=== PATIENT | female | born 1970 | race Caucasian/White ===

== ENCOUNTER 2022-04-05 12:48 | Observation (INO) ==
[2022-04-05 14:02] LABS: Basophils # 0.1 K/mcL (0.0-0.2); Basophils % 0.9 %; Eosinophils # 0.3 K/mcL (0.0-0.6); Eosinophils % 4.7 %; Hematocrit 39.9 % (35.3-44.9); Hemoglobin 12.8 g/dL (11.5-15.4); Immature Granulocytes % 0.2 % (0-4); Lymphocytes # 1.5 K/mcL (0.6-4.6); Lymphocytes % 27.1 %; Mean Corpuscular HGB Conc 32.1 g/dL (31.6-35.5); Mean Corpuscular Hemoglobin 26.9 pg (28.0-33.3); Mean Corpuscular Volume 83.8 fL (83.0-100.0); Mean Platelet Volume 11.1 fL (9.4-12.4); Monocytes # 0.4 K/mcL (0.0-1.3); Monocytes % 6.5 %; Neutrophils # 3.4 K/mcL (1.6-8.9); Platelet Count 253 K/mcL (140-400); Red Blood Count 4.76 M/mcL (3.82-4.97); Red Cell Distribution Width 13.4 % (11.5-14.5); Segmented Neutrophils % 60.6 %; White Blood Count 5.5 K/mcL (4.3-11.1)
[2022-04-05 14:45] LABS: Alanine Aminotransferase 770 Units/L (7-52); Albumin 4.4 g/dL (3.5-5.7); Albumin/Globulin Ratio 1.4 (1.1-2.2); Alkaline Phosphatase 165 Units/L (34-104); Aspartate Amino Transferase 442 Units/L (13-39); BUN/Creatinine Ratio 25 (6-26); Bilirubin,Direct 0.2 mg/dL (0.0-0.2); Bilirubin,Indirect 0.6 mg/dL (0.0-1.0); Bilirubin,Total 0.8 mg/dL (0.3-1.0); Blood Urea Nitrogen 16 mg/dL (6-20); Calcium 9.7 mg/dL (8.6-10.3); Carbon Dioxide 28 mEq/L (23-29); Chloride 103 mEq/L (98-107); Globulin 3.2 g/dL (2.4-3.5); Glucose 87 mg/dL (70-105); Lipase 15 Units/L (11-82); Osmolality,Calculated 287 (280-300); Potassium 3.5 mEq/L (3.5-5.1); Sodium 138 mEq/L (136-145); Total Protein 7.6 g/dL (6.4-8.9)
[2022-04-05 15:35] LABS: Bacteria,Urine Few per hpf (None-Few); Bilirubin,Urine Negative (Negative); Blood,Urine Trace (Negative); Clarity,Urine Clear (Clear); Color,Urine Yellow (Yellow); Glucose,Urine (UA) Normal (Normal); Ketones,Urine 20 mg/dL (Negative); Leukocyte Esterase,Urine Small (Negative); Mucus,Urine Few per lpf (None-Few); Nitrite,Urine Negative (Negative); Protein,Urine Trace mg/dL (Neg-Trace); RBC,Urine 0-3 per hpf (0-3); Specific Gravity,Urine 1.023 (1.010-1.025); Squamous Epithelial Cell,Urine Few per hpf (None-Few); Urobilinogen,Urine Normal (Normal)
[2022-04-05 17:08] LABS: Troponin I < 0.03 ng/mL (< 0.04)
[2022-04-05] MEDS ORDERED: *HR* OxyCODONE Immed Rel 5 MG TABLET PO PRN ×2 (21:01)
[2022-04-05] MEDS ORDERED: cefOXitin 2,000 MG in 0.9 % Sodium Chloride 20 ML IVP ONE (21:01)
[2022-04-05] MEDS ORDERED: Ondansetron 4 MG/2 ML VIAL IVP PRN (21:01)
[2022-04-05] MEDS ORDERED: Acetaminophen 325 MG TABLET PO PRN (21:01)
[2022-04-05] MEDS ORDERED: Morphine Sulfate 2 MG/ML SYRINGE IVP PRN (21:03)
[2022-04-05] MEDS ORDERED: Ondansetron 4 MG/2 ML VIAL ONE (21:07)
[2022-04-05] MEDS ORDERED: Lidocaine -MPF 2% 2 ML VIAL ONE (21:07)
[2022-04-05] MEDS ORDERED: *HR* Succinylcholine 200 MG/10 ML VIAL IVP ONE (21:07)
[2022-04-05] MEDS ORDERED: Lidocaine HCL 4 ML Topical Solution (Laryng-O-Jet Kit Sterile Pak) TP ONE (21:07)
[2022-04-05] MEDS ORDERED: Acetaminophen IV 1,000 MG/100 ML BAG IVPB ONE (21:07)
[2022-04-05] MEDS ORDERED: *HR* Propofol 200 MG/20 ML VIAL IVP ONE (21:07)
[2022-04-05] MEDS ORDERED: *HR* Rocuronium Bromide 50 MG/5 ML VIAL ONE (21:07)
[2022-04-05] MEDS ORDERED: CefOXitin 2,000 MG VIAL ONE (21:16)
[2022-04-05] MEDS ORDERED: *HR* FentaNYL (PF) 100 MCG/2 ML VIAL ONE (21:16)
[2022-04-05] MEDS ORDERED: *HR* Midazolam HCl 2 MG/2 ML VIAL ONE (21:39)
[2022-04-05] MEDS ORDERED: Iopamidol - 300 50 ML VIAL ONE (21:39)
[2022-04-05] MEDS ORDERED: Famotidine 20 MG/2 ML VIAL ONE (21:39)
[2022-04-05] MEDS ORDERED: Sugammadex Sodium 200 MG/2 ML VIAL IV ONE (22:08)
[2022-04-05] MEDS ORDERED: EPHEDrine sulfate 50 MG/10 ML VIAL IVP ONE (22:17)
[2022-04-05] MEDS ORDERED: *HR* HYDROMORPHONE 2 MG/ML VIAL ONE (22:32)
[2022-04-06] MEDS: *HR* HYDROmorphone 2 MG/ML SYRINGE IVP PRN ×2 (00:25→00:48)
[2022-04-06] MEDS: Ringers Solution, Lactated 1,000 ML IVC SCH ×2 (01:42→09:56)
[2022-04-06 06:51] VITALS: BP 143/80; PULSE 93; TEMP 97.7; O2SAT 93
[2022-04-06] MEDS ORDERED: Ibuprofen 400 MG TABLET PO ONE (11:00)
== END 2022-04-06 12:03 | disposition home or self-care (01) ==
LOC: 3BNU 12:48 → EMEROOARM 12:48 → 3BNU 21:16
PROVIDERS: ADMIT Surgery; ATTEND Surgery